=== PATIENT | male | born 1945 | race Asian ===

== ENCOUNTER 2017-05-21 12:07 | Outpatient (CLI) | payer OTHER ==
[~2017-05-21 12:07] MED LIST: BUDE1AER IH; DOXA4TAB PO; FINA5TAB1 PO; GUAI100S2 PO; IPRA14.7 INH; MELA5CAP PO; PRED10TA5 PO; SPIMDI INH; SULF1TAB12 PO; TAMS0.4C96 PO; TRAZ-286 PO
== END 2017-05-21 20:05 | disposition home or self-care (01) ==
LOC: MRD 12:07
DX: J44.9 Chronic obstructive pulmonary disease, unspecified (principal)
CPT/HCPCS: 71020

== ENCOUNTER 2017-06-10 10:55 | Outpatient (CLI) | payer OTHER | END 2017-06-10 22:28 | disposition home or self-care (01) | LOC: MRD 10:55 | PROVIDERS: ATTEND Family Medicine | DX: I50.9 Heart failure, unspecified (principal); I51.7 Cardiomegaly; M95.4 Acquired deformity of chest and rib | CPT/HCPCS: 71020 ==

== ENCOUNTER 2017-11-07 23:34 | Emergency (ER) | payer OTHER ==
[~2017-11-07] VITALS: Ht 121.9 cm; Wt 47.6 kg
[2017-11-07 23:36] VITALS: BP 159/107
--- NOTE | 2017-11-07 23:40 | NUR ---
PT. AMBULATES TO ER BED 3, DR. GUILLORY MADE AWARE OF O2 SAT 72% RA Addendum: 11/08/17 at [address] PT. ON O 2 3 LPM VIA NC, O2 SAT 96%
[2017-11-07] MEDS ORDERED: CODE118S2 PO (23:56)
--- NOTE | 2017-11-07 23:56 | NUR ---
72 Y/O M BIB FAMILY W/C/O SOB, AND COUGH X 3 MTHS. 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 PT PLACED IN O2 3 LT D/T O2 SAT 72%, LIPS SLIGHTLY BLUE, AND LABORED BREATHING NOTED. VSS AFTER PLACING HIM IN 02. 02 SAT 98% IN O2 3LT. ER MADE AWARE.
[2017-11-07] MEDS ORDERED: VITD1000 PO (23:58)
[2017-11-07] MEDS ORDERED: LEVO5TAB32 PO (23:58)
[2017-11-07] MEDS ORDERED: PANT40EC PO (23:58)
[2017-11-07] MEDS ORDERED: QUET300T1 PO (23:58)
--- NOTE | 2017-11-08 00:15 | NUR ---
EDWARD GORDILLO AT BEDSIDE EVALUATING PT.
[2017-11-08] MEDS ORDERED: methylPREDNISolone SS 125 MG/2 ML VIAL IVP ONE (00:30)
[2017-11-08] MEDS ORDERED: MAGNESIUM SULFATE 50% 1,000 MG in NACL 0.9% 50 ML IV ONE (00:30)
[2017-11-08] MEDS ORDERED: ALBUTEROL 0.083% 2.5 MG/3 ML NEBU INH ONE (00:30)
[2017-11-08] MEDS ORDERED: MAGNESIUM SULFATE 50% 1000 MG/2 ML VIAL IV ONE (00:44)
[2017-11-08 02:10] VITALS: BP 127/89
--- NOTE | 2017-11-08 02:10 | NUR ---
Patient discharged with v/s stable. Written and verbal after care instructions given and explained. Patient alert, oriented and verbalized understanding of instructions. Ambulatory with steady gait. All questions addressed prior to discharge. ID band removed. Patient advised to follow up with PMD TOMORROW OR RETURN TO ER IF CONDITION WORSENS. Rx of ALBUTEROL, PREDNISONE,AND AZITHROMAX given. Patient educated on indication of medication including possible reaction and side effects. Opportunity to ask questions provided and answered.
--- NOTE | 2017-11-11 12:06 | NUR ---
addendum: recieved preliminary blood cx. gram positive cocci in clusters. awaiting for final and sensitivity
== END 2017-11-08 02:10 | disposition home or self-care (01) ==
LOC: MED 23:34
DX: J44.1 Chronic obstructive pulmonary disease with (acute) exacerbation (principal); I10 Essential (primary) hypertension
CPT/HCPCS: 36415; 71010; 87040; 94640; 96365; 96375; 99285; J2930; J3475; J7613; Q0092